=== PATIENT | male | born 1995 | race American Indian/Alaskan Native ===

== ENCOUNTER 2017-03-28 22:45 | Emergency (ER) | payer SELFPAY ==
[2017-03-29] MEDS ORDERED: MOTRIN PO ONE (02:06)
[2017-03-29] MEDS ORDERED: VEETIDS PO ONE (02:06)
--- NOTE | 2017-03-29 02:07 | Emergency Department Report ---
HPI - General Chief Complaint: Sore Throat Time Seen by Provider: 03/29/17 01:29 - HPI HPI: Patient here reports that he's been having sore throat with painful swallowing 3 days. Denies any drooling, coughing, shortness of breath or chest pain. Denies any nasal congestion or headache. Pain is 7 out of 10 and feels sore. Denies any fever. Reports chills. Patient also reports that he saw some blood in his spit. Pain is worse with swallowing better when he does not swallow. ED Past Medical Hx - Past Medical History Previous Medical History?: No - Surgical History Past Surgical History?: No - Family History Family history: no significant - Social History Smoking Status: Never Smoker Substance Use Type: None Other Social History: Single and lives with family - Medications Home Medications: Home Medications Medication Instructions Recorded Confirmed Last Taken Type Ibuprofen [Motrin] 600 mg PO Q8H PRN #15 tablet 03/29/17 Unknown Rx Penicillin Vk [Veetids TAB] 2 tab-cap PO Q8H #60 tablet 03/29/17 Unknown Rx ED Review of Systems ROS: Stated complaint: SORE THROAT Other details as noted in HPI Comment: All other systems reviewed and negative Constitutional: chills. denies: weakness Eyes: denies: eye discharge ENT: throat pain. denies: ear pain, dental pain, epistaxis, congestion Respiratory: no symptoms reported Cardiovascular: denies: chest pain, palpitations, edema, syncope Gastrointestinal: denies: abdominal pain, nausea, vomiting, diarrhea Musculoskeletal: denies: back pain, joint swelling, arthralgia, myalgia Skin: denies: rash, pruritus Neurological: denies: headache, weakness, numbness, paresthesias, confusion, abnormal gait, vertigo Physical Exam - Physical Exam Vital Signs: Vital Signs 03/28/17 23:07 Temperature 98.7 F Pulse Rate 58 L Respiratory 18 Rate Blood Pressure 112/70 O2 Sat by Pulse 97 Oximetry General: This is a 21-year-old male well-nourished well-developed in no acute distress Physical Exam: Head: Normocephalic, atraumatic. No abrasions, laceration or contusion Neck: Supple, Positive anterior cervical adenopathy. Full range of motion. No C-spine tenderness. No muscular tenderness Eyes: Jerod sclera nonicteric, no conjunctival injection, bilateral pupils equal and reactive to light. Bilateral EOM intact. Ears: Bilateral TMs pearly suazo, bilaterally EAC without any redness swelling or drainage. Nose: Jerod nasal mucosa without any erythema or congestion. No drainage. Mouth: Moist, positive pharyngeal exudate and erythema. Uvula is midline and oral airways patent. Tongue normal CV:S1, S2 regular rate and rhythm. Lungs: Clear to auscultate to lung domínguez. Normal work of breathing. Abdomen: Soft, normal bowel sounds in all quadrants. No rigidity or distention. Extremity: No clubbing, cyanosis or edema. +2 pulses in all extremities. No neurovascular compromise. Capillary refill is less than 3 seconds. Skin: Clean dry and intact, no rash or lesions. PSYCH: Normal mood and behavior ED Course Vital Signs 03/28/17 23:07 Temperature 98.7 F Pulse Rate 58 L Respiratory 18 Rate Blood Pressure 112/70 O2 Sat by Pulse 97 Oximetry - Reevaluation(s) Reevaluation #1: 03/29/17 02:18 He received Motrin 800 mg in the emergency room for sore throats along with penicillin VK for first dose of antibiotic to cover strep throat. ED Medical Decision Making - Medical Decision Making ED course: Pt here reporting sore throat for 3 days with chills. He reports difficulty swallowing but no drooling. She does not have any respiratory distress. He was given Motrin 800 mg by mouth for sore throat and started on penicillin VK 500 mg in the emergency room. Based on [facility] criteria and my physical findings patient with exudative pharyngitis with enlarged lymph nodes, chills and pharyngeal erythema with exudate. Discussed diagnosis and treatment plan with patient and he voiced understanding. To follow-up with his primary care physician in 2-3 days and if he does not have one he can follow-up at [facility].. Diagnostic/labs: There are no need for lab test or diagnostic tests. Assessment/plan: 1. Exudative pharyngitis-patient given Motrin 800 mg and emergency room for sore throat, penicillin VK 500 mg to start for strep throat. Patient discharged home with prescription for penicillin VK and Motrin and to follow-up with primary care physician in 2-3 days and if he does not have a primary care physician then he'll need to follow up at [facility]. Critical care attestation.: If time is entered above; I have spent that time in minutes in the direct care of this critically ill patient, excluding procedure time. ED Disposition Clinical Impression: Exudative pharyngitis Disposition: TO HOME OR SELFCARE Is pt being admited?: No Does the pt Need Aspirin: No Condition: Stable Instructions: Strep Throat (ED) Additional Instructions: Please follow up with primary care as recommended and if he do not have a primary care physician he can follow up at [facility] Increase fluid intake Take medication as prescribed . Prescriptions: Ibuprofen [Motrin] 600 mg PO Q8H PRN #15 tablet PRN Reason: Pain Penicillin Vk [Veetids TAB] 2 tab-cap PO Q8H #60 tablet Referrals: PRIMARY CARE, [Primary Care Provider] - 2-3 Days [facility] [Outside] - 2-3 Days Forms: Work/School Release Form(ED)
[2017-03-29 02:41] VITALS: BP 130/85
== END 2017-03-29 02:51 | disposition home or self-care (01) ==
LOC: ED 22:45
DX: J02.9 Acute pharyngitis, unspecified (principal); R13.10 Dysphagia, unspecified
CPT/HCPCS: 99282